=== PATIENT | female | born 1965 | race Caucasian/White ===

== ENCOUNTER 2018-02-26 10:42 | Observation (INO) | payer OTHER ==
[2018-02-26 10:55] VITALS: BMI 25.1
--- NOTE | 2018-02-26 10:58 | ED PDOC ---
Arrival/HPI - General Historian: Patient - History of Present Illness Narrative History of Present Illness (Text): 02/26/18 10:53 52yo female with pmhx of hypertension who present with the son by the bedside with complaint of chest pain and SOB since last night. The son described the pain as pressure and GAVIRIA. Reports history of similar symptoms in the past, but is worse today. Does not take any medication. The son states the mother stopped taking antihypertensive 4years ago. Denies diaphoresis, fever, chills, cough, LE edema, calf pain, nausea, vomiting, abdominal pain, back pain, ripping tearing upper back pain, dizziness, any other complaint. Past Medical History - Provider Review Nursing Documentation Reviewed: Yes Family/Social History - Physician Review Nursing Documentation Reviewed: Yes Family/Social History: Unknown Family HX Allergies/Home Meds Allergies/Adverse Reactions: Allergies No Known Allergies Allergy (Verified 02/26/18 10:52) Home Medications: Home Meds Medication Instructions Recorded Confirmed No Known Home Med 02/26/18 02/26/18 Review of Systems - Physician Review All systems were reviewed & negative as marked: Yes - Review of Systems Constitutional: Normal Eyes: Normal ENT: Normal Respiratory: SOB, Cough Cardiovascular: Normal Gastrointestinal: Normal Genitourinary Female: Normal Musculoskeletal: Normal Skin: Normal Neurological: Normal Endocrine: Normal Hemo/Lymphatic: Normal Psychiatric: Normal Physical Exam Vital Signs Reviewed: Yes Vital Signs Temp Pulse Resp BP Pulse Ox 02/26/18 10:49 97.9 F 78 17 144/94 H 97 Temperature: Afebrile Blood Pressure: Normal Pulse: Regular Respiratory Rate: Normal Appearance: Positive for: Well-Appearing, Non-Toxic, Comfortable Pain Distress: None Mental Status: Positive for: Alert and Oriented X 3 - Systems Exam Head: Present: Atraumatic, Normocephalic Pupils: Present: PERRL Extroacular Muscles: Present: EOMI Conjunctiva: Present: Normal Mouth: Present: Moist Mucous Membranes Neck: Present: Normal Range of Motion Respiratory/Chest: Present: Clear to Auscultation, Good Air Exchange. No: Respiratory Distress, Accessory Muscle Use, Wheezes, Decreased Breath Sounds, Rales, Retracting, Rhonchi Cardiovascular: Present: Regular Rate and Rhythm, Normal S1, S2. No: Murmurs Abdomen: No: Tenderness, Distention, Peritoneal Signs Back: Present: Normal Inspection Upper Extremity: Present: Normal Inspection. No: Cyanosis, Edema Lower Extremity: Present: Normal Inspection. No: Edema Neurological: Present: GCS=15, CN II-XII Intact, Speech Normal Skin: Present: Warm, Dry, Normal Color. No: Rashes Psychiatric: Present: Alert, Oriented x 3, Normal Insight, Normal Concentration Medical Decision Making ED Course and Treatment: 02/26/18 11:37 52yo female present with complaint of chest pain and SOB x 2days. Labs EKG chest xray ASA Reassess EKG NSE @ 71bp,. LVH with widening. Prolonged QT. N-stemi Chest xray IMPRESSION: No active disease. Labs was reviewed and first CE was indeterminate. Mild Cr. elevation was noted and NS was ordered Large blood was noted in the UA and result was DW the son and advised to f/u with a Urologist. Elevated D -dimer was noted and V/Q was ordered Secondary to pt's age and cardiac risk she will be placed on OBS for further test and observation All result and plan was DW both pt and the son and they agreed V/Q IMPRESSION: Low probability ventilation perfusion scan for pulmonary embolism. 02/26/18 16:[address] Cuellar and he accepted pt for admission Disposition/Present on Arrival - Present on Arrival Any Indicators Present on Arrival: No History of DVT/PE: No History of Uncontrolled Diabetes: No Urinary Catheter: No History of Decub. Ulcer: No History Surgical Site Infection Following: None - Disposition Have Diagnosis and Disposition been Completed?: Yes Diagnosis: Chest pain, Acute kidney injury Disposition: HOSPITALIZED Disposition Time: 16:00 Patient Plan: Admission Patient Problems: Current Active Problems Problem Status Onset Acute kidney injury Acute Chest pain Acute Condition: FAIR
[2018-02-26 11:18] LABS: BASO # 0.02 K/mm3 (0.0-2.0); BASO % 0.3 % (0.0-3.0); EOS # 0.1 (0.0-0.7); EOS % 1.4 % (1.5-5.0); GRAN # 3.64 (1.4-6.5); HEMOGLOBIN 14.4 g/dL (12.0-16.0); LYMPH # 2.7 (1.2-3.4); LYMPH % 40.4 % (22.0-35.0); MEAN CORPUSCULAR HEMOGLOBIN 28.4 pg (25.0-35.0); MEAN CORPUSCULAR HGB CONC 32.7 g/dl (31.0-37.0); MEAN PLATELET VOLUME 10.6 fl (7.0-11.0); MONO # 0.2 (0.1-0.6); MONO % 2.9 % (1.0-6.0); RBC 5.07 10^6/uL (3.5-6.1); RED CELL DISTRIBUTION WIDTH 13.3 % (11.5-14.5); WHITE BLOOD COUNT 6.6 10^3/uL (4.5-11.0)
[2018-02-26 11:21] LABS: URINE BILIRUBIN NEGATIVE (NEGATIVE); URINE BLOOD LARGE (NEGATIVE); URINE GLUCOSE (UA) NEGATIVE (NEGATIVE); URINE LEUKOCYTE ESTERASE NEGATIVE Leu/uL (NEGATIVE); URINE PROTEIN 100 mg/dL (<30 mg/dL); URINE UROBILINOGEN 0.2 E.U./dL (<1 E.U./dL)
[2018-02-26 11:22] LABS: URINE APPEARANCE SLIGHT-CLOUDY (CLEAR); URINE COLOR YELLOW (YELLOW)
[2018-02-26 11:26] LABS: URINE EPITHELIAL CELLS 0 - 2 /hpf (0-5); URINE WBC NEGATIVE /hpf (0-6)
[2018-02-26 11:29] LABS: ALB/GLOB RATIO 1.2 (1.1-1.8); ALBUMIN 4.3 g/dL (3.0-4.8); CALCIUM 9.7 mg/dL (8.4-10.5)
[2018-02-26] MEDS ORDERED: Sodium Chloride 0.9% 1,000 ML IV STA (11:36)
[2018-02-26 11:39] LABS: B-TYPE NATRIURETIC PEPTIDE 42.3 pg/mL (0-450); TROPONIN I 0.11 ng/mL
[2018-02-26 11:54] LABS: INR 0.92; PARTIAL THROMBOPLASTIN TIME 26.7 Seconds (25.1-36.5); PROTHROMBIN TIME 10.6 SECONDS (9.4-12.5)
--- NOTE | 2018-02-26 13:48 | RAD ---
Date of service: 02/26/2018 HISTORY: chest pain COMPARISON: No prior. FINDINGS: LUNGS: No active pulmonary disease. PLEURA: No significant pleural effusion identified, no pneumothorax apparent. CARDIOVASCULAR: No atherosclerotic calcification present Normal. OSSEOUS STRUCTURES: No significant abnormalities. VISUALIZED UPPER ABDOMEN: Normal. OTHER FINDINGS: None. IMPRESSION: No active disease.
--- NOTE | 2018-02-26 16:35 | NM ---
Date of service: 02/26/2018 COMPARISON: February 26, 2018 single view chest. TECHNIQUE: 33.2 mCi technetium 99-m DTPA aerosol. 3.4 mCI technetium 99-m MAA administered intravenously. FINDINGS: VENTILATION COMPONENT: Normal. PERFUSION COMPONENT: Heterogeneous distribution of radionuclide. No geographic, segmental, lobar abnormalities apparent on the present examination. IMPRESSION: Low probability ventilation perfusion scan for pulmonary embolism.
[2018-02-26 17:52] LABS: HDL CHOLESTEROL 41 mg/dL (29-60)
[2018-02-26 18:03] LABS: LDL CHOLESTEROL 215 mg/dL (0-129)
[2018-02-26 18:09] VITALS: O2SAT 98
--- NOTE | 2018-02-26 18:16 | CP.PCM.HP ---
<Gurpreet Basurto - Last Filed: 02/26/18 18:12> History of Present Illness - History of Present Illness History of Present Illness: Gurpreet Basurto, PGY1 Hospital H&P This is a 52 year old female with PMH of HTN presenting to the ED for one day history of CP. She states CP started at rest while watching TV, located in the epigastric region, non radiating, intermittent, dull, rated 8/10 at worst and denies any alleviating and exacerbating factors. She denies any associated symptoms. She denies every having similar symptoms in past. She denies any previous cardiac workup. She travelled from [place] two months ago. Currently, she states symptoms have resolved and denies CP, SOB, fevers, chills, nausea, vomiting, back pain, diarrhea, constipation, urinary complaints, numbness, tingling, swelling, recent sickness, trauma and lifestyle change including changes in medication, diet and weight. 12 point ROS noted here, otherwise unremarkable. PMD: denies PMH: HTN Meds: denies SH: denies drinking, smoking and drinking Sx: denies surgeries FH: denies All: NKDA LMP: 8 years ago Present on Admission - Present on Admission Any Indicators Present on Admission: No Past Patient History - Past Social History Smoking Status: Never Smoked - CARDIAC Hx Cardiac Disorders: Yes Hx Hypertension: Yes - PULMONARY Hx Respiratory Disorders: No - NEUROLOGICAL Hx Neurological Disorder: No - HEENT Hx HEENT Problems: No - RENAL Hx Chronic Kidney Disease: No - ENDOCRINE/METABOLIC Hx Endocrine Disorders: No - HEMATOLOGICAL/ONCOLOGICAL Hx Blood Disorders: No - INTEGUMENTARY Hx Dermatological Problems: No - MUSCULOSKELETAL/RHEUMATOLOGICAL Hx Musculoskeletal Disorders: No - GASTROINTESTINAL Hx Gastrointestinal Disorders: No - GENITOURINARY/GYNECOLOGICAL Hx Genitourinary Disorders: No - PSYCHIATRIC Hx Psychophysiologic Disorder: No Hx Substance Use: No - SURGICAL HISTORY Hx Surgeries: No Meds Allergies/Adverse Reactions: Allergies Allergy/AdvReac Type Severity Reaction Status Date / Time No Known Allergies Allergy Verified 02/26/18 10:52 Physical Exam - Constitutional Appears: No Acute Distress - Head Exam Head Exam: ATRAUMATIC, NORMAL INSPECTION - Eye Exam Eye Exam: EOMI Pupil Exam: PERRL - ENT Exam ENT Exam: Mucous Membranes Dry - Neck Exam Neck exam: Positive for: Normal Inspection - Respiratory Exam Respiratory Exam: Clear to Auscultation Bilateral, NORMAL BREATHING PATTERN. absent: Accessory Muscle Use, Wheezes, Respiratory Distress - Cardiovascular Exam Cardiovascular Exam: REGULAR RHYTHM, +S1, +S2 - GI/Abdominal Exam GI & Abdominal Exam: Normal Bowel Sounds, Soft. absent: Firm, Guarding, Tenderness - Extremities Exam Extremities exam: Positive for: normal inspection, pedal pulses present. Negative for: calf tenderness, tenderness - Back Exam Back exam: NORMAL INSPECTION. absent: CVA tenderness (L), CVA tenderness (R) - Neurological Exam Neurological exam: Alert, Oriented x3 - Skin Skin Exam: Normal Color, Warm Results - Vital Signs Recent Vital Signs: Last Vital Signs Temp 97.6 F 02/26/18 18:08 Pulse 70 02/26/18 18:08 Resp 18 02/26/18 18:08 BP 159/102 H 02/26/18 18:08 Pulse Ox 98 02/26/18 18:08 - Labs Result Diagrams: 02/26/18 11:10 02/26/18 11:10 Labs: Laboratory Results - last 24 hr 02/26/18 02/26/18 02/26/18 10:59 11:10 11:10 WBC 6.6 RBC 5.07 Hgb 14.4 Hct 44.1 MCV 87.0 MCH 28.4 MCHC 32.7 RDW 13.3 Plt Count 202 MPV 10.6 Gran % 55.0 Lymph % (Auto) 40.4 H [place] % (Auto) 2.9 Eos % (Auto) 1.4 L Baso % (Auto) 0.3 Gran # 3.64 Lymph # (Auto) 2.7 [place] # (Auto) 0.2 Eos # (Auto) 0.1 Baso # (Auto) 0.02 PT 10.6 INR 0.92 APTT 26.7 D-Dimer, Quantitative 539 H Sodium Potassium Chloride Carbon Dioxide Anion Gap BUN Creatinine Est GFR ( Amer) Est GFR (Non-Af Amer) Random Glucose Calcium Magnesium Total Bilirubin AST ALT Alkaline Phosphatase Lactate Dehydrogenase Total Creatine Kinase Troponin I NT-Pro-B Natriuret Pep Total Protein Albumin Globulin Albumin/Globulin Ratio Triglycerides Cholesterol LDL Cholesterol Direct HDL Cholesterol Urine Color Yellow Urine Appearance Slight-cloudy Urine pH 6.0 Ur Specific [place] >= 1.030 Urine Protein 100 H Urine Glucose (UA) Negative Urine Ketones Negative Urine Blood Large H Urine Nitrate Negative Urine Bilirubin Negative Urine Urobilinogen 0.2 Ur Leukocyte Esterase Negative Urine RBC 2 - 5 H Urine WBC Negative Ur Epithelial Cells 0 - 2 02/26/18 02/26/18 11:10 15:30 WBC RBC Hgb Hct MCV MCH MCHC RDW Plt Count MPV Gran % Lymph % (Auto) [place] % (Auto) Eos % (Auto) Baso % (Auto) Gran # Lymph # (Auto) [place] # (Auto) Eos # (Auto) Baso # (Auto) PT INR APTT D-Dimer, Quantitative Sodium 139 Potassium 4.6 Chloride 105 Carbon Dioxide 28 Anion Gap 11 BUN 24 H Creatinine 1.3 H Est GFR ( Amer) 52 Est GFR (Non-Af Amer) 43 Random Glucose 108 Calcium 9.7 Magnesium 2.1 Total Bilirubin 0.7 AST 17 ALT 19 Alkaline Phosphatase 65 Lactate Dehydrogenase 418 Total Creatine Kinase 70 Troponin I 0.11 NT-Pro-B Natriuret Pep 42.3 Total Protein 7.9 Albumin 4.3 Globulin 3.6 Albumin/Globulin Ratio 1.2 Triglycerides 124 Cholesterol 276 H LDL Cholesterol Direct 215 H HDL Cholesterol 41 Urine Color Urine Appearance Urine pH Ur Specific [place] Urine Protein Urine Glucose (UA) Urine Ketones Urine Blood Urine Nitrate Urine Bilirubin Urine Urobilinogen Ur Leukocyte Esterase Urine RBC Urine WBC Ur Epithelial Cells Assessment & Plan - Assessment and Plan (Free Text) Assessment: This is a 52 year old female with PMH of HTN presenting to the ED for one day hi story of CP. Plan: Chest pain -PORFIRIO score of 0 -initial troponin of 0.11, borderline -will trend troponins to evaluate for NSTEMI -initial EKG NSR at 71bpm, with signs of LVH and widened QRS -EKG in AM -echo pending -lipid, A1c, TSH pending -cardio on consult, Dr. Castro -elevated d-dimer in setting of NSR and normal O2 sat on room air -VQ scan shows low probability of PE -CXR shows no active disease PEGGY -consider pre-renal 2/2 dehydration with elevated BUN -NS 100 -f/u AM CMP. If BUN/Cr not improving, will order renal studies -U/A positive for blood, protein HLD -lipid panel is abnormal with elevated cholesterol and LDL -lipitor started Hx of HTN -not currently on meds, will monitor PPX/Diet -lovenox and pepcid -HHD Patient seen and case discussed with attending, Dr. Cuellar <Scar Cuellar - Last Filed: 02/27/18 13:14> Results - Vital Signs Recent Vital Signs: Last Vital Signs Temp 98.2 F 02/27/18 12:05 Pulse 84 02/27/18 12:20 Resp 18 02/27/18 12:05 BP 131/86 02/27/18 12:20 Pulse Ox 98 02/27/18 00:01 - Labs Result Diagrams: 02/27/18 06:30 02/27/18 05:00 Labs: Laboratory Results - last 24 hr 02/26/18 02/26/18 02/27/18 15:30 18:42 05:00 WBC RBC Hgb Hct MCV MCH MCHC RDW Plt Count MPV Sodium 140 Potassium 4.2 Chloride 109 H Carbon Dioxide 24 Anion Gap 11 BUN 21 Creatinine 1.3 H Est GFR ( Amer) 52 Est GFR (Non-Af Amer) 43 Random Glucose 112 H Hemoglobin A1c Calcium 9.6 Lactate Dehydrogenase 359 382 Total Creatine Kinase 61 54 Troponin I 0.11 0.12 Triglycerides 124 Cholesterol 276 H LDL Cholesterol Direct 215 H HDL Cholesterol 41 TSH 3rd Generation 02/27/18 02/27/18 02/27/18 06:30 06:30 06:30 WBC 6.8 RBC 4.80 Hgb 13.5 Hct 41.7 MCV 86.9 MCH 28.1 MCHC 32.4 RDW 13.4 Plt Count 196 MPV 10.5 Sodium Potassium Chloride Carbon Dioxide Anion Gap BUN Creatinine Est GFR ( Amer) Est GFR (Non-Af Amer) Random Glucose Hemoglobin A1c 6.3 Calcium Lactate Dehydrogenase Total Creatine Kinase Troponin I Triglycerides Cholesterol LDL Cholesterol Direct HDL Cholesterol TSH 3rd Generation 2.45 Attending/Attestation - Attestation I have personally seen and examined this patient.: Yes I have fully participated in the care of the patient.: Yes I have reviewed all pertinent clinical information: Yes
--- NOTE | 2018-02-26 18:38 | CARD ---
APPROVED REPORT Date of service: 02/26/2018 EKG Measurement Heart [id number] <Conclusion> Normal sinus rhythm Left ventricular hypertrophy with QRS widening Nonspecific T wave abnormality Prolonged QT Abnormal ECG
[2018-02-26 19:12] LABS: TROPONIN I 0.11 ng/mL
[2018-02-26] MEDS ORDERED: Metoprolol 1 mg/ml Inj IVP STA (19:51)
[2018-02-27] MEDS ORDERED: Sodium Chloride 0.9% 1,000 ML IV SCH ×4 (06:45→15:30)
[2018-02-27 07:10] LABS: HEMOGLOBIN 13.5 g/dL (12.0-16.0); MEAN CELL VOLUME 86.9 fl (80.0-105.0); MEAN CORPUSCULAR HEMOGLOBIN 28.1 pg (25.0-35.0); MEAN CORPUSCULAR HGB CONC 32.4 g/dl (31.0-37.0); MEAN PLATELET VOLUME 10.5 fl (7.0-11.0); RBC 4.8 10^6/uL (3.5-6.1); RED CELL DISTRIBUTION WIDTH 13.4 % (11.5-14.5); WHITE BLOOD COUNT 6.8 10^3/uL (4.5-11.0)
[2018-02-27 07:32] LABS: TROPONIN I 0.12 ng/mL
[2018-02-27 07:40] LABS: CALCIUM 9.6 mg/dL (8.4-10.5)
[2018-02-27] MEDS ORDERED: Enoxaparin 40 mg Syringe SC SCH (10:00)
[2018-02-27] MEDS ORDERED: Lidocaine 2% Inj (20ml) ONE (10:32)
[2018-02-27] MEDS ORDERED: Midazolam 2 MG/2 ML VIAL ONE ×2 (10:32→10:57)
[2018-02-27] MEDS ORDERED: Verapamil 2 ML ONE (10:32)
[2018-02-27] MEDS ORDERED: Nitroglycerin 50mg in D5W 50 MG/250 ML BOTTLE IV ONE (10:33)
[2018-02-27] MEDS ORDERED: Heparin 2,000 ML IV ONE (10:33)
[2018-02-27] MEDS ORDERED: Iodixanol 320 MG/ML 200 ML BOTTLE IV ONE (10:33)
[2018-02-27] MEDS ORDERED: Iodixanol 320 MG/ML 100 ML BOTTLE IV ONE (10:33)
[2018-02-27] MEDS ORDERED: Iohexol 350mgl/ml 50 ML ONE (10:33)
--- NOTE | 2018-02-27 10:35 | CON ---
DATE: 02/27/2018 CARDIOLOGY CONSULTATION REASON FOR CONSULTATION: Chest pain, epigastric pain, borderline positive troponin. VQ scan is negative (low probability). BRIEF CLINICAL HISTORY: This is a 52-year-old Turkish speaking female with questionable history of hypertension, multiple ER visit with complain of chest pain and multiple times of signed out, came in with epigastric pain relating to the chest, chest pain according to the patient start while watching the TV in epigastric region radiating to the retrosternal area. The patient has a D-dimer positive, so the patient was sent for the VQ scan with the low probability. The patient has a renal insufficiency also. The patient denies any chest pain on walking. Denies any dyspnea on exertion, but history is very vague and very poor historian. PAST MEDICAL HISTORY: Past history significant for hypertension also complain of headache. SOCIAL HISTORY: Denies any smoking. Denies any history of alcohol abuse. PAST SURGERY HISTORY: No history of surger in the past No history of definite coronary artery disease. Previous cardiac workup not done. REVIEW OF SYSTEMS: As per HPI. PHYSICAL EXAMINATION: As follows; VITAL SIGNS: Temperature afebrile, heart rate 72 and blood pressure 114/79. HEENT: PERRLA. Extraocular muscles intact. NECK: Supple. No carotid bruit or thyromegaly. CHEST: Clear to auscultation. HEART: S1 and S2, regular. ABDOMEN: Soft. EXTREMITIES: Clubbing and cyanosis negative. LABORATORY DATA: EKG shows normal sinus LVH, no acute ST-T changes noted. Blood workup as follows, WBC 6.8, hemoglobin 13, hematocrit 41.7 and platelet count 196. Chemistry shows sodium 140, potassium 4.2, chloride 109, carbon dioxide 24, anion gap of 11, BUN 21, creatinine 1.3. Troponin 0.11, 0.12, 0.12. D-dimer 539. VQ scan done for the low probability. IMPRESSION: A 52-year-old Turkish speaking female with past medical history of questionable for hypertension not on any medication, traveled 2 months ago from [place]. D-dimer was positive. VQ scan is negative borderline troponin in undetermined range. In view of above and find the definite suggested cardiac catheterization, the patient refused then tried to call the son, Sean Kwan, at [phone] explained, who agreed for cardiac catheterization, but wanted to talk to mom. The patient's son Sean Kwan came back and talk to the son they are still not decided, we talked in length in person with both son and mother. If they agree we will proceed for the cardiac catheterization for now. We will keep n.p.o., we will give load with aspirin, Plavix and proceed for cardiac catheterization if they agreed.Cardiac cath would be definite to know the coronary anatomy because the patient has borderline troponin positive and stress has been inconclusive in face of borderline positive troponin. We will follow. Now we will load aspirin and Plavix. We will keep n.p.o. till decided. The patient is already scheduled for cardiac catheterization around 10:00. Further recommendation upon the patient decision. Thank you Dr. Cuellar in providing this opportunity in taking care of patient, Lisa Lambert. Markel Castro MD MTDTonya
[2018-02-27] MEDS ORDERED: Bacitracin 500 Units/gm Oint Foilpak UD TOP ONE (11:25)
--- NOTE | 2018-02-27 12:01 | CPOSTOP ---
DATE: 02/27/2018 CARDIOVASCULAR LAB POST PROCEDURE NOTE PHYSICIAN: Dr. Gege Castro. RN TRAINING: Brittany Payton, orthodontic lab technician. TYPE OF ANESTHESIA: Moderate conscious sedation, total 3 mg of Versed and 100 of fentanyl given periodically. Started 1 mg of Versed and 50 of fentanyl. PRE-PROCEDURE DIAGNOSES: Unstable angina, positive troponin, rule out non-ST segment myocardial infarction. PROCEDURE PERFORMED: Left heart catheterization. FINDINGS: 1. Nonobstructive coronary artery disease. 2. 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 FINAL DIAGNOSES: 1. Nonobstructive coronary artery disease. 2. 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 POST PROCEDURE PATIENT CONDITION: The patient's condition is stable. VASCULAR ACCESS SITE: Left radial artery. CLOSURE DEVICE APPLIED: TR-band. TOTAL RADIATION DOSE: 2850.34 milligray unit. TOTAL FLUORO TIME: 4 minutes. TOTAL CONTRAST USE: 50 mL contrast used. Markel Castro MD [place]
[2018-02-27] MEDS ORDERED: Bacitracin 500 Units/gm Oint Foilpak UD ONE (14:24)
--- NOTE | 2018-02-27 14:45 | CARD ---
APPROVED REPORT Date of service: 02/27/2018 Procedure(s) performed: Left Heart Catheterization HISTORY The patient is a 52 year-old female with a history of : hypertension , Admitted with chest pain positive troponin 0.11,0.11, and 0.12 and elevated d dimer but Negative V/qQ Scan ( low probablity).. INDICATION The indication(s) include : unstable angina , non-STEMI . CASE TECHNIQUE The patient was brought urgently to the Cardiac Catheterization Laboratory in a fasting state and was prepped and draped in a sterile manner. The left wrist was infiltrated with 2% Lidocaine subcutaneous anesthesia. A 6FR GLIDESHEATH ACCESS KIT sheath was inserted into the left radial artery without difficulty. Coronary angiography was performed using coronary diagnostic catheters. The left coronary system was accessed and visualized with a Diagnostic ,6 Fr AL 1 catheter. The right coronary system was accessed and visualized with a Diagnostic , catheter. The left ventricle was accessed and visualized with a 5F JR 4 CATH DXT 100 CM catheter. Left ventricular/Aortic Valve gradient assessed on pullback. Left ventriculogram was performed in RAMÍREZ projection. Closure device was deployed with a Fr TR Band (Regular) without any complications. The patient tolerated the procedure well and there were no complications associated with the procedure. Vessel Analysis The patient's coronary anatomy is co-dominant. The left main coronary artery is a large size vessel without significant stenosis. The left main bifurcates to the left anterior descending and circumflex. The left anterior descending artery is a medium size vessel with intimal irregularities and without significant stenosis. Mid LAD gives off origin of RCA The first diagonal branch is a small size vessel with intimal irregularities and without significant stenosis. There is a 70% stenosis in the ostial segment. The second diagonal branch is a medium size vessel with diffuse calcification noted throughout this vessel and without significant stenosis. The third diagonal branch is a small size vessel with intimal irregularities and without significant stenosis. The circumflex artery is a large size vessel without significant stenosis. The first obtuse marginal branch is a large size vessel without significant stenosis. The second obtuse marginal branch is a small size vessel with intimal irregularities and without significant stenosis. The third obtuse marginal branch is a medium size vessel without significant stenosis. The left posterior descending artery is a medium size vessel without significant stenosis. The right coronary artery is a medium size vessel without significant stenosis. Arises from Mid LAD The right posterior descending artery is a small size vessel with diffuse calcification noted throughout this vessel and without significant stenosis. The right posterolateral branch is a small size vessel with intimal irregularities and without significant stenosis. Left Ventricle The left ventricle is normal in size with hyperdynamic contractility contractility. There was no cardiomyopathy. The left ventricular ejection fraction is estimated to be 65%. The left ventricular end diastolic pressure is 15-18 mmHg. There was no gradient across the aortic valve upon pullback. Conclusion non obstructive CAD Limited to D2 , which has ostial 70% stenosis. 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 Co dominant System with Larger CX Co- dominant artery and smaller Co-dominant RCA. Hyperdynamic [id number]-YA-[id number]%, EDP-15-18 mmof Hg. Recommendations Work up for non Ischemic Chest pain, consider GI W/U Echo to assess Valvular Fx. CC; Caroline Veronica MD
--- NOTE | 2018-02-27 15:25 | CP.PCM.DIS ---
<Gurpreet Basurto - Last Filed: 02/27/18 16:34> Provider - Provider Date of Admission: 02/26/18 16:06 Attending physician: Markel Foss MD Primary care physician: NO PRIMARY CARE PROVIDER Consults: 02/26/18 16:42 Cardiology Consult Routine Comment: Consulting Provider: Markel Castro Consulting Physician: Markel Castro Reason for Consult: chest pain; indeterminant trop 02/26/18 19:29 Transition In Care/Readmission Reduction Routine Comment: Physician Instructions: Reason For Exam: PT NON COMPLIENT WITH HTN HOME MEDS Time Spent in preparation of Discharge (in minutes): 35 Hospital Course - Lab Results Lab Results: Most Recent Lab Values WBC 6.8 10^3/uL (4.5-11.0) 02/27/18 06:30 RBC 4.80 10^6/uL (3.5-6.1) 02/27/18 06:30 Hgb 13.5 g/dL (12.0-16.0) 02/27/18 06:30 Hct 41.7 % (36.0-48.0) 02/27/18 06:30 MCV 86.9 fl (80.0-105.0) 02/27/18 06:30 MCH 28.1 pg (25.0-35.0) 02/27/18 06:30 MCHC 32.4 g/dl (31.0-37.0) 02/27/18 06:30 RDW 13.4 % (11.5-14.5) 02/27/18 06:30 Plt Count 196 10^3/uL (120.0-450.0) 02/27/18 06:30 MPV 10.5 fl (7.0-11.0) 02/27/18 06:30 Gran % 55.0 % (50.0-68.0) 02/26/18 11:10 Lymph % (Auto) 40.4 % (22.0-35.0) H 02/26/18 11:10 Hunt % (Auto) 2.9 % (1.0-6.0) 02/26/18 11:10 Eos % (Auto) 1.4 % (1.5-5.0) L 02/26/18 11:10 Baso % (Auto) 0.3 % (0.0-3.0) 02/26/18 11:10 Gran # 3.64 (1.4-6.5) 02/26/18 11:10 Lymph # (Auto) 2.7 (1.2-3.4) 02/26/18 11:10 Hunt # (Auto) 0.2 (0.1-0.6) 02/26/18 11:10 Eos # (Auto) 0.1 (0.0-0.7) 02/26/18 11:10 Baso # (Auto) 0.02 K/mm3 (0.0-2.0) 02/26/18 11:10 PT 10.6 SECONDS (9.4-12.5) 02/26/18 11:10 INR 0.92 02/26/18 11:10 APTT 26.7 Seconds (25.1-36.5) 02/26/18 11:10 D-Dimer, Quantitative 539 ng/mlDDU (0-243) H 02/26/18 11:10 Sodium 140 mmol/L (132-148) 02/27/18 05:00 Potassium 4.2 mmol/L (3.6-5.0) 02/27/18 05:00 Chloride 109 mmol/L (98-107) H 02/27/18 05:00 Carbon Dioxide 24 mmol/L (21-33) 02/27/18 05:00 Anion Gap 11 (10-20) 02/27/18 05:00 BUN 21 mg/dL (7-21) 02/27/18 05:00 Creatinine 1.3 mg/dl (0.7-1.2) H 02/27/18 05:00 Est GFR ( Amer) 52 02/27/18 05:00 Est GFR (Non-Af Amer) 43 02/27/18 05:00 Random Glucose 112 mg/dL (70-110) H 02/27/18 05:00 Hemoglobin A1c 6.3 % (4.2-6.5) 02/27/18 06:30 Calcium 9.6 mg/dL (8.4-10.5) 02/27/18 05:00 Magnesium 2.1 mg/dL (1.7-2.2) 02/26/18 11:10 Total Bilirubin 0.7 mg/dL (0.2-1.3) 02/26/18 11:10 AST 17 U/L (14-36) 02/26/18 11:10 ALT 19 U/L (7-56) 02/26/18 11:10 Alkaline Phosphatase 65 U/L (38-126) 02/26/18 11:10 Lactate Dehydrogenase 382 U/L (333-699) 02/27/18 05:00 Total Creatine Kinase 54 U/L (35-230) 02/27/18 05:00 Troponin I 0.12 ng/mL 02/27/18 05:00 NT-Pro-B Natriuret Pep 42.3 pg/mL (0-450) 02/26/18 11:10 Total Protein 7.9 g/dL (5.8-8.3) 02/26/18 11:10 Albumin 4.3 g/dL (3.0-4.8) 02/26/18 11:10 Globulin 3.6 gm/dL 02/26/18 11:10 Albumin/Globulin Ratio 1.2 (1.1-1.8) 02/26/18 11:10 Triglycerides 124 mg/dL (35-160) 02/26/18 15:30 Cholesterol 276 mg/dL (130-200) H 02/26/18 15:30 LDL Cholesterol Direct 215 mg/dL (0-129) H 02/26/18 15:30 HDL Cholesterol 41 mg/dL (29-60) 02/26/18 15:30 TSH 3rd Generation 2.45 mIU/mL (0.46-4.68) 02/27/18 06:30 Urine Color Yellow (YELLOW) 02/26/18 10:59 Urine Appearance Slight-cloudy (CLEAR) 02/26/18 10:59 Urine pH 6.0 (4.7-8.0) 02/26/18 10:59 Ur Specific [place] >= 1.030 (1.005-1.035) 02/26/18 10:59 Urine Protein 100 mg/dL (<30 mg/dL) H 02/26/18 10:59 Urine Glucose (UA) Negative mg/dL (NEGATIVE) 02/26/18 10:59 Urine Ketones Negative mg/dL (NEGATIVE) 02/26/18 10:59 Urine Blood Large (NEGATIVE) H 02/26/18 10:59 Urine Nitrate Negative (NEGATIVE) 02/26/18 10:59 Urine Bilirubin Negative (NEGATIVE) 02/26/18 10:59 Urine Urobilinogen 0.2 E.U./dL (<1 E.U./dL) 02/26/18 10:59 Ur Leukocyte Esterase Negative Charity/uL (NEGATIVE) 02/26/18 10:59 Urine RBC 2 - 5 /hpf (0-2) H 02/26/18 10:59 Urine WBC Negative /hpf (0-6) 02/26/18 10:59 Ur Epithelial Cells 0 - 2 /hpf (0-5) 02/26/18 10:59 - Hospital Course Hospital Course: Upon admission, this is a 52 year old female with PMH of HTN who presented to the ED for one day history of CP. She stated CP started at rest while watching TV, located in the epigastric region, non radiating, intermittent, dull, rated 8/10 at worst and denies any alleviating and exacerbating factors. She denies any associated symptoms. She denies every having similar symptoms in past. She denies any previous cardiac workup. She travelled from [place] two months ago. During hospital course, troponins were indeterminate at 0.11. Initial EKG showed NSR at 71bpm, with signs of LVH and widened QRS. D-dimer noted to be elevated and V/Q scan showed low probability for PE. Echo was done. 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 Her Cr noted to be elevated at 1.3 and given fluids. She was started on aspirin and lipitor 20mg. 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 All of patient's questions were answered. Discharge Exam - Additional Findings Additional findings: - Constitutional Appears: No Acute Distress - Head Exam Head Exam: ATRAUMATIC, NORMAL INSPECTION - Eye Exam Eye Exam: EOMI Pupil Exam: PERRL - ENT Exam ENT Exam: Mucous Membranes Dry - Neck Exam Neck exam: Positive for: Normal Inspection - Respiratory Exam Respiratory Exam: Clear to Auscultation Bilateral, NORMAL BREATHING PATTERN. absent: Accessory Muscle Use, Wheezes, Respiratory Distress - Cardiovascular Exam Cardiovascular Exam: REGULAR RHYTHM, +S1, +S2 - GI/Abdominal Exam GI & Abdominal Exam: Normal Bowel Sounds, Soft. absent: Firm, Guarding, Tenderness - Extremities Exam Extremities exam: Positive for: normal inspection, pedal pulses present. Negative for: calf tenderness, tenderness - Back Exam Back exam: NORMAL INSPECTION. absent: CVA tenderness (L), CVA tenderness (R) - Neurological Exam Neurological exam: Alert, Oriented x3 - Skin Skin Exam: Normal Color, Warm Discharge Plan - Discharge Medications Prescriptions: RX: Aspirin 81 mg PO DAILY #30 tab.chew Atorvastatin [Lipitor] 20 mg PO DAILY #30 tab - Follow Up Plan Condition: FAIR Disposition: HOME/ ROUTINE Additional Instructions: Please follow up with your primary care doctor within 5-7 days of discharge. Please follow up with your shuttle fitting supervisor within 5-7 days of discharge. Please take aspirin and lipitor once daily. Please return to the ED for any new or worsening symptoms. Referrals: [facility] [place] [facility] [place] Markel Castro MD [Staff Provider] - PCP,ОЛЕГ [Primary Care Provider] - <Markel Foss - Last Filed: 02/27/18 17:39> Provider - Provider Date of Admission: 02/26/18 16:06 Attending physician: Markel Foss MD Primary care physician: ОЛГЕ PRIMARY CARE PROVIDER Consults: 02/26/18 16:42 Cardiology Consult Routine Comment: Consulting Provider: Markel Castro Consulting Physician: Markel Castro Reason for Consult: chest pain; indeterminant trop 02/26/18 19:29 Transition In Care/Readmission Reduction Routine Comment: Physician Instructions: Reason For Exam: PT NON COMPLIENT WITH [facility]N [facility] Hospital Course - Lab Results Lab Results: Most Recent Lab Values WBC 6.8 10^3/uL (4.5-11.0) 02/27/18 06:30 RBC 4.80 10^6/uL (3.5-6.1) 02/27/18 06:30 Hgb 13.5 g/dL (12.0-16.0) 02/27/18 06:30 Hct 41.7 % (36.0-48.0) 02/27/18 06:30 MCV 86.9 fl (80.0-105.0) 02/27/18 06:30 MCH 28.1 pg (25.0-35.0) 02/27/18 06:30 MCHC 32.4 g/dl (31.0-37.0) 02/27/18 06:30 RDW 13.4 % (11.5-14.5) 02/27/18 06:30 Plt Count 196 10^3/uL (120.0-450.0) 02/27/18 06:30 MPV 10.5 fl (7.0-11.0) 02/27/18 06:30 Gran % 55.0 % (50.0-68.0) 02/26/18 11:10 Lymph % (Auto) 40.4 % (22.0-35.0) H 02/26/18 11:10 Hunt % (Auto) 2.9 % (1.0-6.0) 02/26/18 11:10 Eos % (Auto) 1.4 % (1.5-5.0) L 02/26/18 11:10 Baso % (Auto) 0.3 % (0.0-3.0) 02/26/18 11:10 Gran # 3.64 (1.4-6.5) 02/26/18 11:10 Lymph # (Auto) 2.7 (1.2-3.4) 02/26/18 11:10 Hunt # (Auto) 0.2 (0.1-0.6) 02/26/18 11:10 Eos # (Auto) 0.1 (0.0-0.7) 02/26/18 11:10 Baso # (Auto) 0.02 K/mm3 (0.0-2.0) 02/26/18 11:10 PT 10.6 SECONDS (9.4-12.5) 02/26/18 11:10 INR 0.92 02/26/18 11:10 APTT 26.7 Seconds (25.1-36.5) 02/26/18 11:10 D-Dimer, Quantitative 539 ng/mlDDU (0-243) H 02/26/18 11:10 Sodium 140 mmol/L (132-148) 02/27/18 15:10 Potassium 3.8 mmol/L (3.6-5.0) 02/27/18 15:10 Chloride 111 mmol/L (98-107) H 02/27/18 15:10 Carbon Dioxide 23 mmol/L (21-33) 02/27/18 15:10 Anion Gap 11 (10-20) 02/27/18 15:10 BUN 18 mg/dL (7-21) 02/27/18 15:10 Creatinine 1.1 mg/dl (0.7-1.2) 02/27/18 15:10 Est GFR ( Amer) > 60 02/27/18 15:10 Est GFR (Non-Af Amer) 52 02/27/18 15:10 Random Glucose 102 mg/dL (70-110) 02/27/18 15:10 Hemoglobin A1c 6.3 % (4.2-6.5) 02/27/18 06:30 Calcium 8.9 mg/dL (8.4-10.5) 02/27/18 15:10 Magnesium 2.1 mg/dL (1.7-2.2) 02/26/18 11:10 Total Bilirubin 0.7 mg/dL (0.2-1.3) 02/26/18 11:10 AST 17 U/L (14-36) 02/26/18 11:10 ALT 19 U/L (7-56) 02/26/18 11:10 Alkaline Phosphatase 65 U/L (38-126) 02/26/18 11:10 Lactate Dehydrogenase 382 U/L (333-699) 02/27/18 05:00 Total Creatine Kinase 54 U/L (35-230) 02/27/18 05:00 Troponin I 0.12 ng/mL 02/27/18 05:00 NT-Pro-B Natriuret Pep 42.3 pg/mL (0-450) 02/26/18 11:10 Total Protein 7.9 g/dL (5.8-8.3) 02/26/18 11:10 Albumin 4.3 g/dL (3.0-4.8) 02/26/18 11:10 Globulin 3.6 gm/dL 02/26/18 11:10 Albumin/Globulin Ratio 1.2 (1.1-1.8) 02/26/18 11:10 Triglycerides 124 mg/dL (35-160) 02/26/18 15:30 Cholesterol 276 mg/dL (130-200) H 02/26/18 15:30 LDL Cholesterol Direct 215 mg/dL (0-129) H 02/26/18 15:30 HDL Cholesterol 41 mg/dL (29-60) 02/26/18 15:30 TSH 3rd Generation 2.45 mIU/mL (0.46-4.68) 02/27/18 06:30 Urine Color Yellow (YELLOW) 02/26/18 10:59 Urine Appearance Slight-cloudy (CLEAR) 02/26/18 10:59 Urine pH 6.0 (4.7-8.0) 02/26/18 10:59 Ur Specific [place] >= 1.030 (1.005-1.035) 02/26/18 10:59 Urine Protein 100 mg/dL (<30 mg/dL) H 02/26/18 10:59 Urine Glucose (UA) Negative mg/dL (NEGATIVE) 02/26/18 10:59 Urine Ketones Negative mg/dL (NEGATIVE) 02/26/18 10:59 Urine Blood Large (NEGATIVE) H 02/26/18 10:59 Urine Nitrate Negative (NEGATIVE) 02/26/18 10:59 Urine Bilirubin Negative (NEGATIVE) 02/26/18 10:59 Urine Urobilinogen 0.2 E.U./dL (<1 E.U./dL) 02/26/18 10:59 Ur Leukocyte Esterase Negative Charity/uL (NEGATIVE) 02/26/18 10:59 Urine RBC 2 - 5 /hpf (0-2) H 02/26/18 10:59 Urine WBC Negative /hpf (0-6) 02/26/18 10:59 Ur Epithelial Cells 0 - 2 /hpf (0-5) 02/26/18 10:59 Attending/Attestation - Attestation I have personally seen and examined this patient.: Yes I have fully participated in the care of the patient.: Yes I have reviewed all pertinent clinical information, including history, physical exam and plan: Yes Notes (Text): 02/27/18 17:34 Medical record note made by the resident after discussion with my direction and input after the patient was personally seen and examined by me. I have reviewed the chart and agree that the record accurately reflects by personal performance of the history, physical exam, data review, and medical decision-making, in the course for the patient. I have also personally directed the plan of care. 52 year old female with PMH of HTN was admitted with chest pain. EKG was negative for ischemic changes. Troponins were indeterminate at 0.11. D- dimer noted to be elevated and V/Q scan showed low probability for PE. Patient was evaluated by cardiology and underwent cardiac catherization which showed non obstructive CAD. Echo showed normal systolic function. Patient remain stable after cardiac cath. She will be discharged home and will follow up with PCP and cardiology. Management plan was discussed in detail with patient. Education was provided.
--- NOTE | 2018-02-27 15:25 | CP.PCM.PN ---
Objective - Vital Signs/Intake and Output Vital Signs (last 24 hours): Temp Pulse Resp BP Pulse Ox 98.2 F 82 18 116/81 98 02/27/18 12:05 02/27/18 13:05 02/27/18 12:05 02/27/18 13:05 02/27/18 00:01 Intake and Output: 02/27/18 02/27/18 06:59 18:59 Intake Total 540 Output Total 3 Balance 537 - Medications Medications: Current Medications Aspirin (Ecotrin) 81 mg PO DAILY [facility] Last Admin: 02/27/18 09:58 Dose: 81 mg Atorvastatin Calcium (Lipitor) 20 mg PO DIN DEMETRIO Enoxaparin Sodium (Lovenox) 40 mg SC DAILY [facility]; Protocol Famotidine (Pepcid) 10 mg PO DAILY [facility] Sodium Chloride (Sodium Chloride 0.9%) 1,000 mls @ 100 mls/hr IV .Q10H [facility] Stop: 02/27/18 20:00 Ibuprofen (Motrin Tab) 400 mg PO Q6H PRN PRN Reason: Headache Last Admin: 02/26/18 20:12 Dose: 400 mg - Labs Labs: 02/27/18 06:30 02/27/18 05:00 PT 10.6 SECONDS (9.4-12.5) 02/26/18 11:10 INR 0.92 02/26/18 11:10 APTT 26.7 Seconds (25.1-36.5) 02/26/18 11:10
--- NOTE | 2018-02-27 15:34 | CARD ---
APPROVED REPORT Date of service: 02/27/2018 EXAM: Two-dimensional and M-mode echocardiogram with Doppler and color Doppler. INDICATION LV Function:SystolicDiastolic 2D DIMENSIONS Left Atrium (2D)2.5 (1.6-4.0cm)IVSd1.2 (0.7-1.1cm) LVDd3.5 (3.9-5.9cm)PWd1.1 (0.7-1.1cm) LVDs2.4 (2.5-4.0cm)FS (%) 31.0 % LVEF (%)59.9 (>50%) M-Mode DIMENSIONS Aortic Root2.60 (2.2-3.7cm)Aortic Cusp Exc.1.60 (1.5-2.0cm) Aortic Valve AoV Peak Rxzpfntt276.0cm/[place] Peak GR.9mmHg Mitral Valve MV E Ggwhnmjt30.7cm/sMV A Xrvlcbip958.0cm/sE/A ratio0.8 TDI E/Lateral E'0.0E/Medial E'0.0 Tricuspid Valve TR Peak [id number]/sRAP [id number] Peak Gr.13mmHg [id number] LEFT VENTRICLE The left ventricle is normal size. There is mild concentric left ventricular hypertrophy. The left ventricular function is normal. The left ventricular ejection fraction is within the normal range. There is normal LV segmental wall motion. Transmitral Doppler flow pattern is Grade I-abnormal relaxation pattern. RIGHT VENTRICLE The right ventricle is normal size. There is normal right ventricular wall thickness. The right ventricular systolic function is normal. ATRIA The left atrium size is normal. The right atrium size is normal. AORTIC VALVE The aortic valve is moderately thickened. There is moderate aortic regurgitation. There is no aortic valvular stenosis. MITRAL VALVE The mitral valve is normal in structure. Mitral regurgitation is trace. There is no mitral valve stenosis. TRICUSPID VALVE The tricuspid valve is normal in structure. There is trace tricuspid regurgitation. PULMONIC VALVE The pulmonary valve is normal in structure. There is trace pulmonic valvular regurgitation. GREAT VESSELS The aortic root is normal in size. <Conclusion> There is mild concentric left ventricular hypertrophy. The left ventricular function is normal. The left ventricular ejection fraction is within the normal range. There is normal LV segmental wall motion. Transmitral Doppler flow pattern is Grade I-abnormal relaxation pattern. There is moderate aortic regurgitation.
[2018-02-27 15:45] LABS: BLOOD UREA NITROGEN 18 mg/dL (7-21); CALCIUM 8.9 mg/dL (8.4-10.5); GFR NON-AFRICAN AMERICAN 52
[2018-02-27 18:23] VITALS: BP 133/104; RESP 20; TEMP 98.1
[2018-02-27 18:24] VITALS: PULSE 88
--- NOTE | 2018-02-27 23:49 | CARD ---
APPROVED REPORT Date of service: 02/27/2018 EKG Measurement Heart [id number] <Conclusion> Sinus rhythm with 1st degree AV block Left ventricular hypertrophy with QRS widening Abnormal ECG
== END 2018-02-27 18:34 | disposition home or self-care (01) ==
LOC: ED 10:42 → ERH 16:06 → 2RNO 17:32 → 2RSO 02-27 12:00
PROVIDERS: ADMIT Internal Medicine; ATTEND Internal Medicine
DX: I25.110 Atherosclerotic heart disease of native coronary artery with unstable angina pectoris (principal); I10 Essential (primary) hypertension; N17.9 Acute kidney failure, unspecified; E78.5 Hyperlipidemia, unspecified
CPT/HCPCS: 36415; 71045; 78582; 80048; 80053; 80061; 81001; 82550; 83036; 83615; 83735; 83880; 84443; 84484; 85025; 85027; 85378; 85610; 85730; 93005; 93306; 93458; 96374; 96375; 99152; 99285; C1769; G0378; J0360; J1644; J2250; J3010; J7030; J7040; Q9966; Q9967